=== PATIENT | male | born 1960 | race Caucasian/White ===

== ENCOUNTER 2021-08-27 13:02 | Outpatient (REF) | payer MEDICAID, SELFPAY ==
[2021-08-27 14:02] LABS: Blood Urea Nitrogen 13 mg/dL (9-16); Estimated Glomerular Filt Rate > 60
== END 2021-08-27 13:03 | disposition home or self-care (01) ==
LOC: HO.LAB 13:02
PROVIDERS: PCP Internal Medicine; Visit Provider Otolaryngology
DX: Z01.812 Encounter for preprocedural laboratory examination (principal)
CPT/HCPCS: 36415; 82565; 84520

== ENCOUNTER 2021-08-30 09:33 | Outpatient (REF) | payer MEDICAID, SELFPAY ==
--- NOTE | ~2021-08-30 | CT_ITS ---
CT SOFT TISSUE NECK WITH CONTRAST CLINICAL INFORMATION: History of neck carcinoma status post radiation therapy. COMPARISON: Neck CT 11/26/2013. TECHNIQUE: Following the intravenous administration of 100 mL of Omnipaque 350 intravenous contrast, helical imaging was performed in the axial plane with generation of coronal and sagittal reformatted images. This CT examination was performed using dose optimization techniques as appropriate, variously including the following: *Automated exposure control *Adjustment of mA and/or kV according to patient size (this includes techniques or standardized protocols for targeted exams where dose is matched to indication/reason for exam; i.e. extremities or head) *Use of iterative reconstruction technique FINDINGS: The oral cavity and tongue is significantly obscured by dental streak artifact and not diagnostically assessed. No definite nodular enhancing lesion is seen along the superficial mucosal space. Laryngeal structures are fairly symmetric but not well assessed in phonation. Interval increase in size of a level IA lymph node or 2 adjacent lymph nodes measuring up to 1.4 cm in long transaxial dimension compared to 0.6 cm previously. There is no additional cervical lymphadenopathy. Multiple punctate calcifications throughout the parotid glands bilaterally without active inflammatory changes adjacent to the parotid glands. The submandibular glands are normal. The thyroid gland is small in size. The parapharyngeal fat is preserved. The carotid sheath vasculature opacify normally. The superior mediastinum is unremarkable. The lung apices are clear. There is mild mucosal thickening involving the ethmoid air cells bilaterally and the maxillary sinuses bilaterally. There is anterior subluxation of C3 on C4 and C4 on C5. Severe degenerative disc disease at C5-C6. Findings are slightly progressed. Possible severe central canal stenosis at C3-C4 that can be correlated for clinical signs of cervical myelopathy. There is atlantooccipital assimilation on the right side. The imaged portions of the brain parenchyma are unremarkable. CT/CT soft tissue neck w con IMPRESSION: - Interval increase in size of a level IA lymph node or 2 adjacent lymph nodes measuring up to 1.4 cm in long transaxial dimension compared to 0.6 cm previously. This can be further assessed with PET/CT as clinically indicated given the clinical history. - No definite superficial mucosal space lesion is identified however assessment of the oral cavity and tongue are nondiagnostic secondary to significant dental streak artifact. - Multiple punctate calcifications throughout the parotid glands bilaterally without active inflammatory changes adjacent to the parotid glands. - There is anterior subluxation of C3 on C4 and C4 on C5. Severe degenerative disc disease at C5-C6. Findings are slightly progressed. Possible severe central canal stenosis at C3-C4 that can be correlated for clinical signs of cervical myelopathy.
[2021-08-30] MEDS: iohexoL 350 MG/ML 100 ML INFUS..BTL IV (10:48)
== END 2021-08-30 09:34 | disposition home or self-care (01) ==
LOC: HO.CT 09:33
PROVIDERS: PCP Internal Medicine; Visit Provider Otolaryngology
DX: Z85.818 Personal history of malignant neoplasm of other sites of lip, oral cavity, and pharynx (principal)
CPT/HCPCS: 70491; Q9967